=== PATIENT | male | born 1990 | race Two or more races ===

== ENCOUNTER 2017-09-23 13:38 | Emergency (ER) | payer SELFPAY ==
[~2017-09-23] VITALS: Ht 180.3 cm; Wt 83.0 kg
[2017-09-23] MEDS ORDERED: IBUPROFEN 600MG TABLET PO ONE (16:15)
[2017-09-23 16:20] VITALS: BP 105/65
== END 2017-09-23 17:43 | disposition home or self-care (01) ==
LOC: ER 14:38
DX: S16.1XXA Strain of muscle, fascia and tendon at neck level, initial encounter (principal); S39.012A Strain of muscle, fascia and tendon of lower back, initial encounter; V49.9XXA Car occupant (driver) (passenger) injured in unspecified traffic accident, initial encounter; Y93.89 Activity, other specified; Y99.8 Other external cause status; Y92.410 Unspecified street and highway as the place of occurrence of the external cause
CPT/HCPCS: 72040; 72100; 99284; Z7610